=== PATIENT | female | born 1975 | race African-American/Black ===

== ENCOUNTER 2019-09-20 20:29 | Emergency (ER) | payer MEDICAID ==
[~2019-09-20] VITALS: Ht 170.2 cm; Wt 100.0 kg
[2019-09-20 20:39] VITALS: BP 142/96
[2019-09-20] MEDS ORDERED: IBUPROFEN 600MG TABLET PO STA (21:05)
== END 2019-09-20 21:27 | disposition left against medical advice (07) ==
LOC: ER 20:29
DX: S00.81XA Abrasion of other part of head, initial encounter (principal); Y08.89XA Assault by other specified means, initial encounter; Y93.89 Activity, other specified; Y92.89 Other specified places as the place of occurrence of the external cause; Y99.8 Other external cause status; J45.909 Unspecified asthma, uncomplicated; I10 Essential (primary) hypertension
CPT/HCPCS: 99283

== ENCOUNTER 2019-09-21 00:28 | Emergency (ER) | payer MEDICAID ==
[~2019-09-21] VITALS: Ht 167.6 cm; Wt 98.0 kg
[2019-09-21] MEDS ORDERED: HYDROCODONE/ACETAMINOPHEN 5/325MG TABLET PO ONE (02:45)
[2019-09-21 05:00] VITALS: BP 125/68
== END 2019-09-21 05:03 | disposition home or self-care (01) ==
LOC: ER 00:28
DX: S00.81XA Abrasion of other part of head, initial encounter (principal); I10 Essential (primary) hypertension; Y04.0XXA Assault by unarmed brawl or fight, initial encounter; Y07.01 Husband, perpetrator of maltreatment and neglect; Y93.89 Activity, other specified; Y92.018 Other place in single-family (private) house as the place of occurrence of the external cause
CPT/HCPCS: 73562; 81025; 99284

== ENCOUNTER 2023-10-06 10:52 | Emergency (ER) | payer MEDICAID ==
[~2023-10-06] VITALS: Ht 167.6 cm; Wt 91.0 kg
[2023-10-06 10:54] VITALS: O2SAT 98
[2023-10-06] MEDS ORDERED: LIDOCAINE HCL/PF 1% 10 MG/ML 5ML VIAL INFIL ONE (11:00)
[2023-10-06] MEDS ORDERED: LIDOCAINE HCL/EPINEPHRINE 1%-EPI 1:100,000 20 ML VIAL INFIL ONE (11:30)
[2023-10-06] MEDS: TETANUS, DIPHTHERIA, PERTUSSIS VAC/PF 0.5ML (>10YR OLD) IM ONE (11:32)
[2023-10-06] MEDS ORDERED: BO1 TP (11:32)
[2023-10-06] MEDS ORDERED: AMOX1TAB16 MT (11:32)
[2023-10-06] MEDS ORDERED: TOPUD MT (13:27)
[2023-10-06] MEDS ORDERED: IBUP-2028 MT (13:27)
[2023-10-06 14:06] VITALS: BP 158/100; PULSE 59; RESP 18; TEMP 98.2
== END 2023-10-06 14:07 | disposition home or self-care (01) ==
LOC: ER 10:52
DX: S01.511A Laceration without foreign body of lip, initial encounter (principal); I10 Essential (primary) hypertension; W54.0XXA Bitten by dog, initial encounter; Y93.89 Activity, other specified; Y92.89 Other specified places as the place of occurrence of the external cause; Y99.8 Other external cause status
CPT/HCPCS: 81025; 90715; 12013; 90471; 99283; J3490; Z7610

== ENCOUNTER 2023-10-13 14:20 | Emergency (ER) | payer MEDICAID ==
[~2023-10-13] VITALS: Ht 170.2 cm; Wt 100.0 kg
[~2023-10-13 14:20] MED LIST: AMOX1TAB16 MT; BO1 TP; IBUP-2028 MT; TOPUD MT
[2023-10-13 14:33] VITALS: BP 137/100; PULSE 100; RESP 18; TEMP 98; O2SAT 99
== END 2023-10-13 15:18 | disposition home or self-care (01) ==
LOC: ER 14:20
DX: S01.511D Laceration without foreign body of lip, subsequent encounter (principal); Z48.02 Encounter for removal of sutures; X58.XXXD Exposure to other specified factors, subsequent encounter
CPT/HCPCS: 99281; Z7610